=== PATIENT | male | born 1965 | race Caucasian/White ===

== ENCOUNTER 2024-02-03 15:08 | Emergency (ER) | payer OTHER, SELFPAY ==
[2024-02-03 15:08] VITALS: BP 161/86; PULSE 64; RESP 16; TEMP 36.4; O2SAT 99; BMI 27.3
[2024-02-03 16:06] LABS: Absolute Lymphocyte Count 1.98 X10^3/uL (0.83-4.51); Absolute Neutrophil Count 5.4 X10^3/uL (2.0-7.7); Basophil# 0.03 X10^3/uL; Basophil% 0.4 % (0-1); Eosinophil# 0.26 X10^3/uL; Eosinophils% 3.1 % (0-5); Hemoglobin 15.4 g/dL (13.0-16.5); Lymphocyte # 1.98 X10^3/ul (0.83-4.51); Lymphocyte % 23.6 % (19-41); Mean Corp Hgb Conc 34.2 g/dL (32-36); Mean Corpuscular Hgb 30.6 pg (27.0-32.0); Mean Corpuscular Volume 89.5 fL (80-94); Mean Platelet Vol. 8.8 fl (6.2-12.0); Monocyte# 0.66 X10^3/uL; Monocyte% 7.9 % (0-10); NRBC Flagged by Analyzer 0 % (0-5); Neutrophil # 5.44 X10^3/uL (2.7-7.7); Neutrophil % 64.9 % (47-70); Platelet Count 208 K/mm3 (150-450); RBC Distribution Width CV 12.7 % (11.6-14.6); RBC Distribution Width SD 41.9 fl (35.1-43.9); Red Blood Count 5.03 M/mm3 (4.6-6.2); White Blood Count 8.4 K/mm3 (4.4-11.0)
--- NOTE | 2024-02-03 16:19 | EDS_ITS ---
HPI <ROMAIN Cardoso - Last Filed: 02/03/24 18:45> History of Present Illness Chief Complaint: Headache Narrative Narrative: Patient is a 58-year-old male with no significant medical history, patient presents to the emergency department with headache for 1 week. Patient's the headache is bilateral in his faith area, patient states it can wax and wane to severe to mild severe. However has been taking ibuprofen and Tylenol with no relief. He is concerned because he spoke with his and his grandfather from an aneurysm. He is concerned and here for evaluation. He did have a recent physical with his PCP and is still on no prescription and medications. [facility] <ROMAIN Cardoso - Last Filed: 02/03/24 18:45> [facility] Medical History (Updated 02/03/24 @ 18:45 by ROMAIN Cardoso) Encounter for examination required by Department of Transportation (DOT) Home Medications ?Medication ?Instructions ?Recorded ?Last Taken ?Type No Known/Unobtainable [No Known 04/11/16 Unknown History Home Medications] Allergy/AdvReac Type Severity Reaction Status Date / Time No Known Allergies Allergy Verified 02/03/24 15:09 Social History Smoking Status: Never smoker ROS <ROMAIN Cardoso - Last Filed: 02/03/24 18:45> ROS ED ROS Narrative Constitutional: Negative for fever, chills, weight loss, weakness Eyes: Negative for vision loss, vision change, double vision ENT: Negative for any sore throat, ear pain, congestion Cardiovascular: Negative for any chest pain, tightness, palpitations Respiratory: Negative for any cough, sputum production, hemoptysis, dyspnea, dyspnea on exertion, orthopnea Gastrointestinal: Negative for any abdominal pain, nausea, vomiting, diarrhea, constipation, blood in stool, blood in vomit : Negative for any urinary frequency, dysuria, retention, blood in urine Muscle skeletal: Negative for any neck pain, back pain Neurological: Negative for any syncope, dizziness. Positive headache Skin: Negative for any rashes, itching, abrasions, lacerations Psychiatric: Negative for any depression, anxiety, stress, suicidal ideation, homicidal ideation Hematologic: Negative for any excessive bruising, easy bleeding EXAM <ROMAIN Cardoso - Last Filed: 02/03/24 18:45> Physical Exam Narrative Exam Narrative: Vital signs reviewed. HEET: Head normocephalic atraumatic, TMs clear bilaterally. Posterior pharynx is clear, moist mucous membranes. Nares clear bilaterally. Pupils are equal round reactive to light Neck: Supple with no lymphadenopathy or tenderness. No signs of meningismus. Cardiac: Regular rate and rhythm no murmurs gallops or rubs, equal peripheral pulses bilaterally. Respiratory: Lungs clear to auscultation bilaterally. No chest tenderness. Abdomen: Soft, nontender, nondistended. No abdominal bruit or pulsatile masses. No hepatosplenomegaly Extremities: No peripheral edema, no signs of gross trauma or deformity. Active full range of motion of all extremities. Neuro: Cranial nerves II through XII intact, no focal neurological deficits. NIH stroke scale 0. Skin: Clean dry and intact with no rash, purpura, petechiae, vesicles or pustules. Backs/flank: No CVA tenderness, no midline spinal tenderness, no deformity. Psych: Normal mood and affect. No SI, HI or acute psychosis. Const Vital Signs: 02/03/24 15:08 02/03/24 17:08 02/03/24 18:56 Temperature 97.6 F L 98.1 F Temperature Source Temporal Pulse Rate 64 69 55 L Respiratory Rate 16 16 16 Blood Pressure 161/86 H 155/79 H 160/89 H Blood Pressure Mean 111 104 112 Pulse Ox 99 99 98 Oxygen Delivery Method Room Air Room Air <Dr. Palomo Britt DO - Last Filed: 02/04/24 00:02> Physical Exam Const Vital Signs: 02/03/24 15:08 02/03/24 17:08 02/03/24 18:56 Temperature 97.6 F L 98.1 F Temperature Source Temporal Pulse Rate 64 69 55 L Respiratory Rate 16 16 16 Blood Pressure 161/86 H 155/79 H 160/89 H Blood Pressure Mean 111 104 112 Pulse Ox 99 99 98 Oxygen Delivery Method Room Air Room Air [facility] <ROMAIN Cardoso - Last Filed: 02/03/24 18:45> MDM Lab Data Labs: Laboratory Results - last 24 hr 02/03/24 16:00 WBC 8.4 RBC 5.03 Hgb 15.4 Hct 45.0 MCV 89.5 MCH 30.6 MCHC 34.2 RDW Std Deviation 41.9 RDW Coeff of Tiffanie 12.7 Plt Count 208 MPV 8.8 Immature Gran % (Auto) 0.100 Neut % (Auto) 64.9 Lymph % (Auto) 23.6 Motley % (Auto) 7.9 Eos % (Auto) 3.1 Baso % (Auto) 0.4 Absolute Neuts (auto) 5.4 Absolute Lymphs (auto) 1.98 Nucleated RBC % 0 ESR 7 Sodium 137 Potassium 4.0 Chloride 109 H Carbon Dioxide 25.0 Anion Gap 3 L BUN 18 Creatinine 0.94 Estim Creat Clear Calc 99.17 Est GFR (MDRD) Af Amer 107 Est GFR (MDRD) Non-Af 88 BUN/Creatinine Ratio 19.2 Glucose 95 Calcium 9.1 C-React Prot Ext Range < 2.90 Radiography Diagnostic Testing: Clinical Impression(s) from Imaging Studies Head/Neck CTA 02/03/24 16:51 IMPRESSION: Normal CTA Head and neck with contrast. No aneurysm or large vessel occlusion. No internal carotid artery stenosis. Electronically Signed: Felipe Fajardo MD at 18:39 EDT , Treatment and Re-Evaluation :: Differential diagnosis includes however is not limited to: Temporal arteritis, migraine, hypertension Patient appears to be in no obvious distress, vital signs are stable, patient is nontoxic-appearing. Presenting to the emergency department with complaints of headache has been ongoing for 1 week. Secondary to the patient's concerns, family history, CTA of the head and neck be completed, basic laboratory values including IV fluids, Benadryl, Reglan. Patient will be reevaluated. All radiologic examinations were read, reviewed by the emergency department attendin chucho. From these reads, a plan of care will be put in place. Patient's laboratory values showed normal CBC, chemistries were unremarkable. Patient is currently pain-free, no longer has a headache. Patient currently waiting for the CTA of the head and neck with contrast. Patient CT of the head and neck showed normal CTA of the head and neck with contrast. No aneurysm or large vessel occlusion. No internal carotid artery stenosis. At this time, reevaluation the patient was pain-free. Patient be stable for discharge. He will follow-up closely with his primary care physician. Stable for discharge. <Dr. Palomo Britt, DO - Last Filed: 02/04/24 00:02> [facility] Lab Data Labs: Laboratory Results - last 24 hr 02/03/24 16:00 WBC 8.4 RBC 5.03 Hgb 15.4 Hct 45.0 MCV 89.5 MCH 30.6 MCHC 34.2 RDW Std Deviation 41.9 RDW Coeff of Tiffanie 12.7 Plt Count 208 MPV 8.8 Immature Gran % (Auto) 0.100 Neut % (Auto) 64.9 Lymph % (Auto) 23.6 Motley % (Auto) 7.9 Eos % (Auto) 3.1 Baso % (Auto) 0.4 Absolute Neuts (auto) 5.4 Absolute Lymphs (auto) 1.98 Nucleated RBC % 0 ESR 7 Sodium 137 Potassium 4.0 Chloride 109 H Carbon Dioxide 25.0 Anion Gap 3 L BUN 18 Creatinine 0.94 Estim Creat Clear Calc 99.17 Est GFR (MDRD) Af Amer 107 Est GFR (MDRD) Non-Af 88 BUN/Creatinine Ratio 19.2 Glucose 95 Calcium 9.1 C-React Prot Ext Range < 2.90 Radiography Diagnostic Testing: Clinical Impression(s) from Imaging Studies Head/Neck CTA 02/03/24 16:51 IMPRESSION: Normal CTA Head and neck with contrast. No aneurysm or large vessel occlusion. No internal carotid artery stenosis. Electronically Signed: Felipe Fajardo MD at 18:39 EDT Reading Location ID and State: [address] [place] [address] , Service support , Treatment and Re-Evaluation :: Differential diagnosis includes however is not limited to: Temporal arteritis, migraine, hypertension Patient appears to be in no obvious distress, vital signs are stable, patient is nontoxic-appearing. Presenting to the emergency department with complaints of headache has been ongoing for 1 week. Secondary to the patient's concerns, family history, CTA of the head and neck be completed, basic laboratory values including IV fluids, Benadryl, Reglan. Patient will be reevaluated. All radiologic examinations were read, reviewed by the emergency department attending. From these reads, a plan of care will be put in place. Patient's laboratory values showed normal CBC, chemistries were unremarkable. Patient is currently pain-free, no longer has a headache. Patient currently waiting for the CTA of the head and neck with contrast. Patient CT of the head and neck showed normal CTA of the head and neck with contrast. No aneurysm or large vessel occlusion. No internal carotid artery stenosis. At this time, reevaluation the patient was pain-free. Patient be stable for discharge. He will follow-up closely with his primary care physician. Stable for discharge. This patient was seen with a PA/AERONAUTICAL ENGINEERING PROFESSOR Individually assessed they patient including history and physical. I have reviewed everything on the chart that is available and agree with the documentation provided by the PA/AERONAUTICAL ENGINEERING PROFESSOR including discussion about the assessment, treatment plan, discussion, and return precautions. Patient presenting with headache. Differential as above. He is slightly has normal vital signs. He has no focal neurologic deficits or lateralizing signs or symptoms. Patient was treated with Reglan and Benadryl. This was negative. Given family history of aneurysm that he do have a CTA of the head and neck was negative. Patient feeling improved afterwards. CBC and BMP unremarkable. ESR and CRP are also normal. At this point I feel the patient stable for discharge since his headache is improved. Return precautions were discussed Discharge Plan Triage Chief Complaint: Headache ED Midlevel Provider: Cirilo Marcum ED Provider: Palomo Britt Dx/Rx/DC Orders Clinical Impression: Headache Instructions: ED Pain, Acute, Uncertain Cause, ED Occipital Neuralgia Prescriptions: No Action No Known Home Medications Primary Care Provider: Pradip Abad Referrals: Pradip Abad MD [Primary Care Provider] - Activity Restrictions/Additional Instructions: Please follow-up with your PCP. You had a negative CT scan of the head and neck, your lab values including your inflammatory markers were normal. Print Language: Libyan Disposition Disposition: Home, Self Care Discharge Date/Time: 02/03/24 18:58
[2024-02-03 16:32] LABS: Anion Gap 3 (5-15); BUN 18 mg/dL (7-18); BUN/Creat Ratio 19.2 RATIO (10-20); CRP < 2.90 mg/L (0.0-3.0); Calcium,Total 9.1 mg/dL (8.5-10.1); Chloride 109 mmol/L (98-107); Creatinine, Serum 0.94 mg/dL (0.70-1.30); EST Glomerular Filtration Rate 88 mL/min (>60); Est Glom Filt Rate - Afr Amer 107 mL/min (>60); Estimated Creatinine Clearance 99.17 ml/min; Glucose 95 mg/dL (74-106); Sodium Level 137 mmol/L (136-145)
[2024-02-03] MEDS: Metoclopramide 10 MG/2 ML Vial 5 MG IV (16:44)
[2024-02-03] MEDS: DiphenhydrAMINE 50 MG/ML Syringe 25 MG IV (16:44)
[2024-02-03] MEDS: 0.9% Normal Saline (1000mL) 1,000 ML 999 ML IV (16:44)
[2024-02-03 16:49] LABS: Erythrocyte Sedimentation Rate 7 mm/hr (0-20)
--- NOTE | 2024-02-03 16:51 | CT_ITS ---
STUDY: CTA HEAD AND NECK WITH CONTRAST REASON FOR EXAM: Male, 58 years old. Headache RADIATION DOSAGE (If Supplied By Facility): CTDIvol = ( 31.35 ) mGy, DLP = ( 1701.92 ) mGycm TECHNIQUE: CT angiography was performed with a multi-detector CT scanner. Data acquisition was obtained from the skull base through the vertex following intravenous administration of IV 100mL [id number]-[id number]. MIP images were reconstructed from the axial data set. Post-processing of the angiographic images was performed, with multiplanar reformation and 3D reconstruction. Individualized dose optimization techniques were used for this CT. COMPARISON: No relevant priors. FINDINGS: Normal bilateral petrous carotid arteries. Normal right cavernous carotid artery with a normal supraclinoid bifurcation. Normal left cavernous carotid artery with a normal supraclinoid bifurcation. Normal right A1 segments of the anterior cerebral artery. There is hypoplastic development of the left A1 segment of the anterior cerebral arteries with an atretic but intact artery. Normal intact anterior communicating artery (ACOM). Normal bilateral A2 segments of the anterior cerebral arteries. Normal right M1 and M2 segments of the middle cerebral arteries, with a normal M1 bifurcation. Normal left M1 and M2 segments of the middle cerebral arteries, with a normal M1 bifurcation. There is non-visualization of the right posterior communicating artery (PCOM). There is non-visualization of the left posterior communicating artery (PCOM). Normal bilateral vertebral arteries. Normal basilar artery with a normal basilar bifurcation. The visualized bilateral superior cerebellar (SCA) arteries are normal. Normal bilateral P1, P2 and visualized P3 segments of the posterior cerebral arteries. There is no demonstrated aneurysm of the [place]. There is no demonstrated abnormality of the visualized brain. AORTIC ARCH: Normal visualized aortic arch. Normal origins of the brachiocephalic, left common carotid, and left subclavian arteries. RIGHT CAROTID ARTERIES: Normal right common carotid artery (CCA). Normal right common carotid bulb. Normal origin of the right internal carotid (ICA) artery without a hemodynamically significant stenosis. Normal visualized cervical portion of the right internal carotid artery. Normal origin of the right external carotid artery (ECA). LEFT CAROTID ARTERIES: Normal left common carotid artery (CCA). Normal left common carotid bulb. Normal origin of the left internal carotid (ICA) artery without a hemodynamically significant stenosis. Normal visualized cervical portion of the left internal carotid artery. Normal origin of the left external carotid artery (ECA). VERTEBRAL ARTERIES: Normal bilateral vertebral arteries. CT/CTA Head AND Neck W/ Contrast IMPRESSION: Normal CTA Head and neck with contrast. No aneurysm or large vessel occlusion. No internal carotid artery stenosis. Electronically Signed: Felipe Fajardo MD at 18:39 EDT ,
[2024-02-03 17:08] VITALS: BP 155/79; PULSE 69; RESP 16; O2SAT 99
[2024-02-03 18:56] VITALS: BP 160/89; PULSE 55; RESP 16; TEMP 36.7; O2SAT 98
== END 2024-02-03 18:58 | disposition home or self-care (01) ==
PROVIDERS: Nurse Practitioner; Emergency Provider Student in an Organized Health Care Education/Training Program; PCP Family Medicine; Visit Provider Student in an Organized Health Care Education/Training Program
DX: R51.9 Headache, unspecified (principal)
CPT/HCPCS: 70496; 70498; 80048; 85025; 85652; 86140; 96361; 96374; 96375; 99283; J7030; Q9967; A4216